=== PATIENT | female | born 1995 | race Two or more races ===

== ENCOUNTER 2020-01-24 10:55 | Observation (INO) | payer MEDICAID, OTHER | END 2020-01-24 14:30 | disposition home or self-care (01) | LOC: LDRP 10:55 | PROVIDERS: ADMIT Specialist; ATTEND Specialist | DX: O24.419 Gestational diabetes mellitus in pregnancy, unspecified control (principal); O40.3XX0 Polyhydramnios, third trimester, not applicable or unspecified; Z3A.35 35 weeks gestation of pregnancy | CPT/HCPCS: 59025; 76818; 81002; 82948; 82962; G0378 ==

== ENCOUNTER 2020-01-27 10:14 | Observation (INO) | payer MEDICAID | END 2020-01-27 12:10 | disposition home or self-care (01) | LOC: LDRP 10:14 | PROVIDERS: ADMIT Specialist; ATTEND Specialist | DX: O24.419 Gestational diabetes mellitus in pregnancy, unspecified control (principal); Z3A.34 34 weeks gestation of pregnancy | CPT/HCPCS: 59025; 76818; 81002; 82962; G0378 ==

== ENCOUNTER 2020-01-31 13:44 | Observation (INO) | payer MEDICAID ==
[~2020-01-31] VITALS: Ht 160 cm; Wt 72.6 kg
[2020-01-31] MEDS ORDERED: PREN-96 PO (14:16)
[2020-01-31] MEDS ORDERED: TERBUTALINE SULFATE 1 MG/ML 1ML VIAL SC SCH (16:00)
== END 2020-01-31 15:46 | disposition home or self-care (01) ==
LOC: LDRP 13:44
PROVIDERS: ADMIT Specialist; ATTEND Specialist
DX: O24.410 Gestational diabetes mellitus in pregnancy, diet controlled (principal); O62.9 Abnormality of forces of labor, unspecified; O34.219 Maternal care for unspecified type scar from previous cesarean delivery; Z3A.34 34 weeks gestation of pregnancy
CPT/HCPCS: 59025; 76805; 76818; 81002; 82948; 82962; 96372; G0378; J3105